=== PATIENT | female | born 1950 | race Caucasian/White ===

== ENCOUNTER → 2016-08-01 | Outpatient (CLI) | payer OTHER ==
[2016-08-01 15:06] LABS: ALANINE AMINOTRANSFERASE 33 U/L (9-52); ALBUMIN 4.4 g/dL (3.5-5.0); ALKALINE PHOSPHATASE 47 U/L (38-126); ANION GAP 12 (5-19); ASPARTATE AMINO TRANSFERASE 33 U/L (14-36); BILIRUBIN,DIRECT 0.4 mg/dL (0.0-0.4); BILIRUBIN,TOTAL 0.8 mg/dL (0.2-1.3); BLOOD UREA NITROGEN 19 mg/dL (7-20); CALCIUM 10.3 mg/dL (8.4-10.2); CARBON DIOXIDE 25 mmol/L (22-30); CHLORIDE 101 mmol/L (98-107); CREATININE RESULT 0.56 mg/dL (0.52-1.25); GLUCOSE 86 mg/dL (75-110); POTASSIUM 4.1 mmol/L (3.6-5.0); SODIUM 138.2 mmol/L (137-145); TOTAL PROTEIN 7.8 g/dL (6.3-8.2)
[2016-08-07 10:11] LABS: HEMATOCRIT 37.1 % (36.0-47.0); HEMOGLOBIN 12.2 g/dL (12.0-15.5); HGB HCT DIFFERENCE -0.5; MEAN CORPUSCULAR HEMOGLOBIN 30.8 pg (27.0-33.4); MEAN CORPUSCULAR HGB CONC 32.8 g/dL (32.0-36.0); MEAN CORPUSCULAR VOLUME 94 fl (80-97); RED BLOOD COUNT 3.95 10^6/uL (3.72-5.28); RED CELL DISTRIBUTION WIDTH 14.5 % (11.5-14.0); WHITE BLOOD COUNT 4.4 10^3/uL (4.0-10.5)
== END ==
LOC: OD 13:01
PROVIDERS: ATTEND Nurse Practitioner Primary Care
DX: E66.3 Overweight (principal); R60.9 Edema, unspecified; Z13.220 Encounter for screening for lipoid disorders; Z13.0 Encounter for screening for diseases of the blood and blood-forming organs and certain disorders involving the immune mechanism; Z13.1 Encounter for screening for diabetes mellitus; Z13.29 Encounter for screening for other suspected endocrine disorder; Z13.21 Encounter for screening for nutritional disorder
CPT/HCPCS: 36415; 80053; 82306; 83036; 84443; 85025; 85027

== ENCOUNTER 2017-01-04 07:08 | Day surgery (SDC) | payer OTHER ==
[2017-01-04] MEDS ORDERED: GLYCOPYRROLATE INJ 0.4 MG/2 ML VIAL ONE (07:14)
[2017-01-04] MEDS ORDERED: ONDANSETRON HCL INJ/PF 4 MG/2 ML SDV ONE (07:14)
[2017-01-04] MEDS ORDERED: FENTANYL CITRATE INJ/PF 100 MCG/2 ML AMPUL ONE (07:15)
[2017-01-04] MEDS ORDERED: EPINEPHRINE INJ 1 MG/10 ML DISP.SYRIN ONE (07:15)
[2017-01-04] MEDS ORDERED: FLUMAZENIL INJ 0.5 MG/5 ML VIAL ONE (07:15)
[2017-01-04] MEDS ORDERED: NALOXONE HCL INJ/PF 0.4 MG/1 ML SDV ONE (07:15)
[2017-01-04] MEDS ORDERED: GLUCAGON,HUMAN RECOMB 1 MG INJ ONE (07:15)
[2017-01-04] MEDS: MIDAZOLAM 2 MG/2 ML INJ ONE ×3 (07:36→07:42)
--- NOTE | 2017-01-04 08:21 | Operative Report ---
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 Plan and surgical timeout were conducted The patient was placed in the left lateral decubitus position with knees to chest. A perianal examination was performed. There was no visible or palpable anorectal pathology. Sphincter tone was felt to be normal. The flexible adult colonoscope was advanced through the anal rectal canal, all the way to the cecum. Utilization of the cecum was achieved and the ileocecal valve, the appendiceal orifice and transillumination of the anterior abdominal wall. This was an excellent study on the well-prepped bowel. The colonoscope was withdrawn slowly and methodically checked and the mucosa carefully. In the mid transverse colon was evidence of a previous stapled anastomosis. No evidence of foreign body, tumor, or polyp. There was no evidence of tumor, stricture, bleeding or polyp. There rare diverticulosis of the sigmoid colon. The scope was slowly withdrawn through the anal rectal canal. Complete visualization of the rectum was achieved with photodocumentation. The scope was withdrawn to the patient's anus. The patient tolerated the procedure well and was taken to the recovery area in stable condition. Per surveillance guidelines, patient be an appropriate candidate for follow-up colonoscopy in approximately 3 years, or sooner if any symptoms develop.
--- NOTE | 2017-01-04 08:23 | PDOC DISCHARGE SUMMARY ---
Discharge Summary (SDC) - Discharge Final Diagnosis: Personal history of tubulovillous adenoma of the transverse colon; diverticulosis Date of Surgery: 01/04/17 Discharge Date: 01/04/17 Condition: Good Treatment or Instructions: [address] [address] POST ENDOSCOPY DISCHARGE INSTRUCTIONS 1. Diet: Start clear liquids that a regular diet as tolerated. 2. Resume all preoperative medications. All oral anticoagulants and aspirins can be resumed 24 hours after procedure. 3. If a polypectomy was performed some bleeding per rectum may occur. This should stop within 3 days. If not, please contact the office. 4. If you had a colonoscopy you may experience some bloating and delayed return of normal bowel function for several days, your regular bowel movement pattern should resume within a week. 5. Please contact [facility] at to make an appointment with Dr. Contreras for 1 to 3 weeks following procedure. 6. If you have any questions or concerns regarding your care,treatment plan or follow up, please contact our office. 7. Per clinical guidelines we recommend you undergo a repeat colonoscopy in 3 _ years. Referrals: FABIO CHAVES NP [Primary Care Provider] - Discharge Diet: As Tolerated Discharge Activity: Activity As Tolerated Home Care Assistance: None Needed
[2017-01-04 09:11] VITALS: BP 108/64
== END 2017-01-04 09:20 | disposition home or self-care (01) ==
LOC: END 07:08
PROVIDERS: ATTEND Surgery
PROC: 0DJD8ZZ Inspection of Lower Intestinal Tract, Via Natural or Artificial Opening Endoscopic (ICD-10-PCS; principal; 2017-01-04 07:30)
DX: Z12.11 Encounter for screening for malignant neoplasm of colon (principal); K57.30 Diverticulosis of large intestine without perforation or abscess without bleeding; Z86.010 Personal history of colon polyps; Z80.0 Family history of malignant neoplasm of digestive organs; Z85.3 Personal history of malignant neoplasm of breast; Z79.899 Other long term (current) drug therapy
CPT/HCPCS: 45378; J2250; J3010; J2405; J0171; J1610; J2310; J3490

== ENCOUNTER 2019-10-16 10:03 | Day surgery (SDC) | payer MEDICARE, OTHER ==
[~2019-10-16 10:03] MED LIST: ACETAMINOPHEN 325 MG TABLET PO PRN; CEFAZOLIN 2 GM/D5W RTU 2 GM/50 ML RTUPB IV PRN; OXYCODONE HCL SR 10 MG TABLET PO PRN
[2019-10-16] MEDS ORDERED: ACETAMINOPHEN 325 MG TABLET ONE ×2 (11:15→17:26)
[2019-10-16] MEDS ORDERED: OXYCODONE HCL SR 10 MG TABLET PO ONE (11:15)
[2019-10-16] MEDS ORDERED: CEFAZOLIN 2 GM/D5W RTU 2 GM/50 ML RTUPB IV ONE (11:15)
[2019-10-16] MEDS ORDERED: BUPIVACAINE HCL 0.25 % INJ/PF (2.5 MG/1 ML) 30 ML VIAL ONE ×2 (13:19→14:43)
[2019-10-16] MEDS ORDERED: FENTANYL CITRATE INJ/PF 100 MCG/2 ML AMPUL ONE ×2 (13:41→14:17)
[2019-10-16] MEDS ORDERED: MIDAZOLAM 2 MG/2 ML INJ ONE (13:44)
[2019-10-16] MEDS ORDERED: ONDANSETRON HCL INJ/PF 4 MG/2 ML SDV ONE (14:17)
[2019-10-16] MEDS ORDERED: LIDOCAINE 2% INJ-PF (20 MG/ML) 10 ML AMPUL ONE (14:17)
[2019-10-16] MEDS ORDERED: PROPOFOL INJ 200 MG/20 ML VIAL IV ONE (14:17)
[2019-10-16] MEDS ORDERED: LIDOCAINE 1% INJ-PF (10 MG/ML) 30 ML SDV ONE (14:34)
[2019-10-16] MEDS ORDERED: BUPIVACAINE HCL 0.5 % INJ/PF 30 ML SDV ONE (14:34)
[2019-10-16] MEDS ORDERED: ONDANSETRON HCL INJ/PF 4 MG/2 ML SDV IV PRN (15:16)
[2019-10-16] MEDS ORDERED: DIPHENHYDRAMINE HCL 50 MG/ML VIAL IV PRN (15:16)
[2019-10-16] MEDS ORDERED: MORPHINE SULFATE 10 MG/ML INJ IV PRN (15:16)
[2019-10-16] MEDS ORDERED: MEPERIDINE HCL/PF INJ 25 MG/1 ML DISP.SYRIN IV PRN (15:16)
[2019-10-16] MEDS ORDERED: FENTANYL CITRATE INJ/PF 100 MCG/2 ML AMPUL IV PRN ×3 (15:16)
--- NOTE | 2019-10-16 16:38 | RADIOLOGY REPORT (SQ) ---
EXAM DESCRIPTION: NO CHG FLUORO; WRIST LEFT 3 VIEWS IMAGES COMPLETED DATE/TIME: 10/16/2019 4:20 pm REASON FOR STUDY: LEFT WRIST ORIF S52.502A UNSP FRACTURE OF THE LOWER END OF LEFT RADIUS, INIT COMPARISON: None. FLUOROSCOPY TIME: 53 seconds 6 images saved to PACS. TECHNIQUE: Intra-operative images acquired during surgical procedure to evaluate progress. NUMBER OF IMAGES: 6 LIMITATIONS: None. FINDINGS: Plate and screw fixation of distal radial fracture. Alignment is anatomic. IMPRESSION: IMAGE(S) OBTAINED DURING PROCEDURE. COMMENT: Quality ID [id number]: Final reports for procedures using fluoroscopy that document radiation exp osure indices, or exposure time and number of fluorographic images (if radiation exposure indices are not available) Please consult full operative report of the attending physician for description of the procedure. TECHNICAL DOCUMENTATION: JOB ID: [id number] 2010 [employer]- All Rights Reserved Reading location - IP/workstation name: [email or web address]
--- NOTE | 2019-10-16 16:38 | RADIOLOGY REPORT (SQ) ---
EXAM DESCRIPTION: NO CHG FLUORO; WRIST LEFT 3 VIEWS IMAGES COMPLETED DATE/TIME: 10/16/2019 4:20 pm REASON FOR STUDY: LEFT WRIST ORIF S52.502A UNSP FRACTURE OF THE LOWER END OF LEFT RADIUS, INIT COMPARISON: None. FLUOROSCOPY TIME: 53 seconds 6 images saved to PACS. TECHNIQUE: Intra-operative images acquired during surgical procedure to evaluate progress. NUMBER OF IMAGES: 6 LIMITATIONS: None. FINDINGS: Plate and screw fixation of distal radial fracture. Alignment is anatomic. IMPRESSION: IMAGE(S) OBTAINED DURING PROCEDURE. COMMENT: Quality ID [id number]: Final reports for procedures using fluoroscopy that document radiation exp osure indices, or exposure time and number of fluorographic images (if radiation exposure indices are not available) Please consult full operative report of the attending physician for description of the procedure. TECHNICAL DOCUMENTATION: JOB ID: [id number] 2010 [employer]- All Rights Reserved Reading location - IP/workstation name: [email or web address]
--- NOTE | 2019-10-16 16:50 | Operative Report ---
Operative Report DATE OF SURGERY: 10/16/19 PREOPERATIVE DIAGNOSIS: Left distal radius extra-articular fracture. POSTOPERATIVE DIAGNOSIS: Left distal radius extra-articular fracture OPERATION: Distal radius open reduction internal fixation SURGEON: IRWIN MALIN JR ANESTHESIA: Other - Supraclavicular block with moderate sedation TISSUE REMOVED OR ALTERED: None COMPLICATIONS: None ESTIMATED BLOOD LOSS: 20 cc PROCEDURE: The patient was brought to the operating suite laid supine on the operating table. Preoperatively there were provided with a supraclavicular nerve block. There were placed under moderate sedation. 2 g of Ancef were provided preoperatively. The left upper extremity was prepped and draped in standard sterile fashion. A timeout was performed followed by exsanguination of the upper extremity with a Esmarch. Under fluoroscopic guidance the fracture was closed reduced and then pinned with a K wire to hold reduction. We then made a incision for a volar approach using the FCR interval. We carried this through the FCR sub-sheath and carefully dissected distally with Littler scissors and a spreading fashion ensuring not to damage any surrounding neurovascular structures. Small crossing vessels were cauterized with bipolar. Upon exposing the pronator quadratus we placed retractors to fully expose the distal radius. The pronator quadratus was sharply dissected off of the distal radius using a knife and a barriga elevator. Upon reflecting this we visualized the fracture and ensured that it was keyed in. A plate was selected and placed into the wound. We then pinned this in place just distal to the watershed line with a K wire. Fluoroscopy was used to assist in orientation of the plate and a screw was placed in the oblong hole. Prior to securing the oblong screw we again used fluoroscopy to ensure adequate plate placement on both AP and lateral views. We then placed a nonlocking screw distally to bring the plate to bone. K wires were then removed. After this we completed the distal segment with locking screws in the proximal row and smooth pegs in the distal row. Finally the distal plate was brought to bone with nonlocking cortical screws. Final x-rays were taken to ensure that there is no screw penetration or prominence dorsally. I irrigated the wound copiously with sterile saline solution followed by releasing the tourniquet to evaluate for any potential bleeders. Upon finding no active bleeding we then sewed the pronator quadratus back over the plate with a running 3-0 Monocryl. An inverted 3-0 Monocryl was then used in the subcutaneous tissue in an interrupted fashion followed by a running 3-0 nylon in the skin in a horizontal mattress fashion. Sterile dressing was placed followed by volar splint utilizing plaster. Patient was then awakened from anesthesia and transferred the PACU in stable condition.
[2019-10-16] MEDS ORDERED: TRAMADOL HCL 50 MG TABLET ONE (17:27)
[2019-10-16] MEDS ORDERED: KETOROLAC TROMETHAMINE INJ/PF 30 MG/1 ML SDV IV ONE (17:30)
[2019-10-16] MEDS ORDERED: TRAMADOL HCL 50 MG TABLET PO ONE (18:00)
[2019-10-16] MEDS ORDERED: ACETAMINOPHEN 325 MG TABLET PO ONE (18:00)
[2019-10-16 18:52] VITALS: BP 135/80
== END 2019-10-16 18:30 | disposition home or self-care (01) ==
LOC: OROUT 10:03
PROVIDERS: ATTEND Orthopaedic Surgery
DX: S52.552A Other extraarticular fracture of lower end of left radius, initial encounter for closed fracture (principal); W01.0XXA Fall on same level from slipping, tripping and stumbling without subsequent striking against object, initial encounter; Y93.89 Activity, other specified; Y92.62 Dock or shipyard as the place of occurrence of the external cause; Z79.899 Other long term (current) drug therapy
CPT/HCPCS: 73110; 25607; A9270 ×3; J2250; J3010; J3490 ×2; J2405; J2704; J0690; 01830; 64415; 76942; J1885

== ENCOUNTER → 2019-11-07 | Outpatient (CLI) | payer MEDICARE ==
--- NOTE | 2019-11-07 10:33 | WOMENS IMAGING REPORT ---
EXAM DESCRIPTION: BONE DENSITY HIP/SPINE IMAGES COMPLETED DATE/TIME: 11/07/2019 10:23 am REASON FOR STUDY: M81.0 AGE-RELATED OSTEOPOROSIS W/O CURRENT PATHOLOGICAL FRACTURE M81.0 AGE-RELATE D OSTEOPOROSIS W/O CURRENT PATHOLOGICAL FRAC COMPARISON: None. TECHNIQUE: Dual-Energy X-ray Absorptiometry (DEXA) of the AP Spine and Hip. LIMITATIONS: None. FINDINGS: LUMBAR SPINE: The bone mineral density (BMD) measured from L2-L4 in the AP projection correlates with a T-score of -0.4, which is normal as defined by the World Health Organization. Findings likely falsely related s econdary to degenerative change and endplate sclerosis. BMD Change vs Baseline: N/A HIP: The bone mineral density (BMD) measured in the left hip correlates with a T-score of -3.0, which is o steoporosis as defined by the World Health Organization. BMD Change vs Baseline: N/A 10 year Fracture Risk Assessment: Major Osteoporotic Fracture: Not available. Hip Fracture: Not available. IMPRESSION: 1. LUMBAR SPINE WHO CLASSIFICATION: NORMAL. Findings possibly falsely related secondary to degenerative change and endplate sclerosis. 2. HIP WHO CLASSIFICATION: OSTEOPOROSIS. OVERALL ASSESSMENT: WHO CLASSIFICATION: OSTEOPOROSIS. COMMENT: The World Health Organization defines low BMD as follows: T-score: Normal: At or above -1.0 Osteopenia: Between -1.0 and -2.5 Osteoporosis: At or below -2.5 without fractures Established osteoporosis: At or below -2.5 with fractures In general, you may wish to consider: Diagnosis Treatment Follow-up DEXA Normal BMD Prevention 2-3 years Osteopenia Prevention/Therapy 1-2 years Osteoporosis Therapy Yearly TECHNICAL DOCUMENTATION: JOB ID: [id number] 2010 [employer]- All Rights Reserved Reading location - IP/workstation name: [email or web address]
== END ==
LOC: WI 09:32
PROVIDERS: ATTEND Nurse Practitioner Primary Care
DX: M81.0 Age-related osteoporosis without current pathological fracture (principal)
CPT/HCPCS: 77080